=== PATIENT | female | born 1985 ===

== ENCOUNTER 2018-11-07 16:27 | Emergency (ER) | payer OTHER ==
[~2018-11-07] VITALS: Ht 157.5 cm; Wt 149.2 kg
[~2018-11-07 16:27] MED LIST: FLONASE16 G1 NS; GILTUSS TR TAB1 EACH PO; KETO10TA2 PO; ORPH100T PO; PROVENTIL3 ML/2.5 M IH; SYMBICORT 16010.2 GM IH
== END 2018-11-07 19:50 | disposition home or self-care (01) ==
LOC: ER 16:27
DX: M65.841 Other synovitis and tenosynovitis, right hand (principal)